=== PATIENT | male | born 1980 | race Caucasian/White ===

== ENCOUNTER → 2017-01-11 | Outpatient (REF) | payer BC | LOC: M SMT 10:15 | PROVIDERS: ATTEND Urology | DX: Z30.2 Encounter for sterilization (principal) ==

== ENCOUNTER → 2017-04-07 | Outpatient (REF) | payer BC ==
[2017-04-07 14:14] LABS: IMMMOTILE SPERM CENTRIFUGED ABSENT (ABSENT); IMMOTILE SPERM ABSENT (ABSENT); MOTILE SPERM ABSENT (ABSENT); MOTILE SPERM CENTRIFUGED ABSENT (ABSENT)
== END ==
LOC: M SMT 13:29
PROVIDERS: ATTEND Urology
DX: Z30.2 Encounter for sterilization (principal)

== ENCOUNTER → 2021-01-07 | Outpatient (CLI) | payer BC ==
[~2021-01-07] MED LIST: CLAR5TAB11 PO
== END ==
LOC: M LABSMTC 11:35
PROVIDERS: ATTEND Anesthesiology
DX: Z01.812 Encounter for preprocedural laboratory examination (principal); Z20.822 Contact with and (suspected) exposure to COVID-19

== ENCOUNTER 2021-01-12 08:45 | Day surgery (SDC) | payer BC ==
[~2021-01-12] VITALS: Ht 180.3 cm; Wt 90.7 kg
[~2021-01-12 08:45] MED LIST changes: +KETOROLAC 60MG 2ML VIAL As Ordered ONE; +LIDOCAINE 1% MDV 20ML VIAL SQ PRN; +LIDOCAINE 2% 100MG/5ML SDV (FOR ANES.) As Ordered ONE; +LR 1,000 ML IV ONE; +MIDAZOLAM INJ 2MG/2ML VIAL (J2250 PER 1MG) As Ordered ONE; +ONDANSETRON 4MG/2ML VIAL As Ordered ONE; +ROCURONIUM BROMIDE 50 MG/5 ML VIAL As Ordered ONE; +SUGAMMADEX SODIUM 500 MG/5 ML VIAL (BRIDION) As Ordered ONE; +dexameTHASONE 4 MG/ML 1ML VIAL (J1100 PER 1MG) As Ordered ONE; +fentaNYL 250 MCG/5 ML INJECTION (J3010) As Ordered ONE; +propofoL 200 MG/20 ML VIAL As Ordered ONE
--- OUTSIDE RECORDS SUMMARY | 2021-01-12 08:51 | CCD | Continuity of Care Document ---
Author Author Pramod Mccabe Organization Unknown Address [address] [facility] [address] [place] [address] Phone [phone] Care Team Providers Care Supervisor Steno Pool Name Role Phone Malinda Arciniega ANP AUTM [phone] [facility] Radiology AUTM [phone] Jack Aponte MD AUTM [phone] Problems Active Problems Provider Date Temporomandibular joint click Joan Hurtado D.O. Ons et: 04/19/2013 Gastroesophageal reflux disease Joan Hurtado D.O. O nset: 04/19/2013 Social History Type Date Description Comments Sex Unknown ETOH Use Occasionally consumes beer ETOH Use Rarely consumes wine Tobacco Use Start: Unknown Patient is a current smoker, smo kes some days about 2 packs a week Allergies, Adverse Reactions, Alerts Active Allergies Reaction Severity Comments Date No Known Drug Allergy 2010 Medications Active Medications SIG Qnty Indications Ordering Provide r Date Chantix Continuing Month Kendall 1mg T ablets twice a day (start one month after starter pack) 60tabs SOHAIL Mccabe 10/23/[address] 1 by mouth prn SOHAIL Mccabe 10/17/2018 Chantix Starting Month Kendall 0.5mg X 11 & 1 mg X 42 Tablets follow kendall directions 1pk SOHAIL Mccabe 08/09/2017 Claritin 10mg Tablets 1 po qd 30tabs Joan Hurtado D.O. 03/24/2011 Multi For Him Tablets 1 by mouth every day Unknown Immunizations Description No Information Available Vital Signs Date Vital Result Comment 12/30/2020 7:58am BP Systolic 136 mmHg BP Diastolic 70 mmHg Heart Rate 78 /min Height 71 inches 5'11" Weight 212.00 lb O2 % BldC Oximetry 98 % BMI (Body Mass Index) 29.6 kg/m2 07/14/2020 3:01pm Heart Rate 90 /min Height 71 inches 5'11" Weight 207.00 lb O2 % BldC Oximetry 98 % RM Air BMI (Body Mass Index) 28.9 kg/m2 Results Test Acquired Date Facility Test Result H/L Range Note Complete Blood Count 12/30/2020 [facility] Director Of Recreation Therapy: [place] Ehsan [place] [address] [phone] WBC 5.1 x10*3/UL 4.1 - 10.9 RBC 5.15 x10*6/UL 4.20 - 6.30 Hemoglobin 16.1 g/dL 12.0 - 18.0 Hematocrit 46.2 % 37.0 - 51.0 MCV 89.7 fL 80.0 - 97.0 MCH 31.3 pg 26.0 - 32.0 MCHC 34.9 g/dL 31.0 - 38.0 RDW 12.4 % 11.6 - 13.7 PLT 225 x10*3/UL 140 - 440 MPV 7.6 FL Low 7.8 - 11.0 Lymph % 27.3 % 10.0 - 58.5 Mid % 5.8 % 1.7 - 9.3 Neut % 66.9 % 37.0 - 92.0 Lymph # 1.4 x10*3/UL 0.6 - 4.1 Mid # 0.3 x10*3/UL 0.1 - 0.6 Neut # 3.4 x10*3/UL 2.0 - 7.8 Basic Metabolic Panel 12/30/2020 [facility] Director Of Recreation Therapy: Dr Ehsan [place] [address] [phone] Glucose 100 mg/dL High 74 - 99 1 BUN 16 mg/dL 7 - 18 Creatinine 0.9 mg/dL 0.6 - 1.3 Sodium 142 mEq/L 136 - 145 Potassium 4.3 mEq/L 3.5 - 5.1 Chloride 103 mEq/L 98 - 107 Carbon Dioxide 29 mEq/L 21 - 32 Calcium 9.1 mg/dL 8.5 - 10.1 GFR >= 60 mL/min >60 GFR >= 60 mL/min >60 2 Lipid Profile 12/30/2020 [facility] Director Of Recreation Therapy: Dr Ehsan Langford [place], [place] [id number] [phone] Cholesterol 190 mg/dL 131 - 200 Triglycerides 83 mg/dL 30 - 150 HDL Cholesterol 46 mg/dL 35 - 60 LDL (Calculated) 127 CALC 50 - 159 1 100-125 mg/dL PRE-DIABET ES/FASTING >126 mg/dL DIABETES/FASTING 2 CHRONIC KIDNEY DISEASE STAGI NG PER NKF STAGE I & II GFR >= 60 NORMAL TO MILDLY DECREASED STAGE III GFR 30-59 MODERATELY DECREASED STAGE IV GFR 15-29 SEVERELY DECREASED STAGE V GFR <15 VERY LITTLE GFR LEFT ESRD GFR <15 ON EARLY LEARNING TEACHER Procedures Description No Information Available Medical Devices Description No Information Available Encounters Type Date Location Provider Dx Diagnosis Office Visit 07/14/2020 3:00p [facility], SOHAIL I86.1 Scrotal varices N50.82 Scrotal pain N43.3 Hydrocele, unspecified Assessments Date Code Description Provider 07/14/2020 I86.1 Scrotal varices SOHAIL Mccabe 07/14/2020 N50.82 Scrotal pain SOHAIL Mccabe 07/14/2020 N43.3 Hydrocele, unspecified Malinda Sánchez, SOHAIL Plan of Treatment Future Appointment(s):* 01/05/2022 9:00 am - SOHAIL Mccabe at [facility] Functional Status Description No Information Available Mental Status Description No Information Available Referrals Refer to Reason for Referral Status Appt Date Jose Cano M.D. CONSULT FOR SCROTAL PAIN Patient Notified 07/24/2020 [facility] [address] , [facility] [place], [place] [id number] [phone]
--- OUTSIDE RECORDS SUMMARY | 2021-01-12 08:51 | CCD | Continuity of Care Document ---
Author Author Pramod Mccabe Organization Unknown Address [address] [facility] [address] [place] [address] Phone [phone] Care Team Providers Care Machine Clipper Name Role Phone Malinda Arciniega ANP AUTM [phone] [facility] Radiology AUTM [phone] Jack Aponte MD AUTM [phone] Problems Active Problems Provider Date Temporomandibular joint [...] H/L Range Note Complete Blood Count 12/30/2020 [facility] Medical Research Assistant: [place] [address] [phone] WBC 5.1 x10*3/UL 4.1 - 10.9 RBC [...] 2.0 - 7.8 Basic Metabolic Panel 12/30/2020 [facility] Medical Research Assistant: [place] [address] [phone] Glucose 100 mg/dL High 74 - 99 [...] 60 mL/min >60 2 Lipid Profile 12/30/2020 [facility] Medical Research Assistant: [place] [address] [phone] Cholesterol 190 mg/dL 131 - 200 Triglycerides [...] LITTLE GFR LEFT ESRD GFR <15 ON SEO PROFESSIONAL Procedures Description No Information Available Medical Devices Description No Information Available Encounters Type Date Location Provider Dx Diagnosis Office Visit 12/30/2020 8:00a [facility] Malinda Sánchez, [facility] Z00.00 Encntr for general adult medical exam w/ o abnormal findings K40.30 Unil inguinal hernia, w obst , w/o gangr, not spcf as recur E78.00 Pure hypercholesterolemia, u nspecified F17.210 Nicotine dependence, cigaret skye, uncomplicated Z71.6 Tobacco abuse counseling E66.3 Overweight Z68.29 Body mass index [BMI] 29.0-2 9.9, adult Z80.0 Family history of malignant neoplasm of digestive organs Z13.89 Encounter for screening for other disorder Office Visit 07/14/2020 3:00p [facility], RESIN FILTERER I86.1 Scrotal varices N50.82 Scrotal pain N43.3 Hydrocele, unspecified Assessments Date Code Description Provider 12/30/2020 Z00.00 Encounter for genera l adult medical examination without abnormal findings SOHAIL Mccabe 12/30/2020 K40.30 Unilateral inguinal hernia, with obstruction, without gangrene, not specified as recurrent SOHAIL Mccabe 12/30/2020 E78.00 Pure hypercholesterolemia, unspe cified SOHAIL Mccabe 12/30/2020 F17.210 Nicotine dependence, cigarettes, uncomplicated Malinda Sonali Be, [facility] 12/30/2020 Z71.6 Tobacco abuse counseling Malinda Ayala, [facility] 12/30/2020 E66.3 Overweight Malinda Ayala, [facility] 12/30/2020 Z68.29 Body mass index [BMI] 29.0-29.9, adult Malinda Sonali Be, [facility] 12/30/2020 Z80.0 Family history of malignant neop lasm of digestive organs Malinda Ayala [facility] 12/30/2020 Z13.89 Encounter for screening for othe r disorder Malinda Ayala [facility] 07/14/2020 I86.1 Scrotal varices Malinda Ayala [facility] 07/14/2020 N50.82 Scrotal pain Malinda Ayala [facility] 07/14/2020 N43.3 Hydrocele, unspecified Malinda Sánchez, [facility] Plan of Treatment Future Appointment(s):* 01/05/2022 9:00 am - SOHAIL Mccabe at [facility] 12/30/2020 - SOHAIL Mccabe* Z00.00 Encounter for general adult medical examination without abnormal findings* Comments:* Diet and exercise discussed. * K40.30 Unilateral inguinal hernia, with obstruction, without gangrene, not specified as recurrent* Comments:* CBC and BMP normal. Dr Aponte plans to surgically repair hernia this month. * E78.00 Pure hypercholesterolemia, unspecified* Comments:* lipids at goal without medication * F17.210 Nicotine dependence, cigarettes, uncomplicated* Comments:* Smoking cessation discussed. He is not ready to restart Chantix. * Z71.6 Tobacco abuse counseling* Comments:* smoking cessation discussed. * E66.3 Overweight* Comments:* Exercise and diet discussed. * Z68.29 Body mass index [BMI] 29.0-29.9, adult * Z80.0 Family history of malignant neoplasm of digestive organs * Z13.89 Encounter for screening for other disorder Functional Status Description No Information Available Mental Status Description No Information Available Referrals Refer to Reason for Referral Status Appt Date Jose Cano M.D. CONSULT FOR SCROTAL PAIN Patient Notified 07/24/2020 [facility] [address] , [place] [address] [phone]
--- OUTSIDE RECORDS SUMMARY | 2021-01-12 08:51 | CCD | Continuity of Care Document ---
Author Author Pramod Mccabe Organization Unknown Address [address] [facility] [address] [place] [address] Phone [phone] Care Team Providers Care Laser Beam Color Scanner Operator Name Role Phone Malinda Arciniega ANP AUTM [phone] [facility] Radiology AUTM [phone] Problems Active Problems Provider Date Temporomandibular joint [...] BMI (Body Mass Index) 28.9 kg/m2 Results Description No Information Available Procedures Description No Information Available Medical Devices Description No Information Available Encounters Type Date Location Provider Dx Diagnosis Office Visit 07/14/2020 3:00p [facility] Malinda Sánchez, [employer]ANT [employer] MANAGER I86.1 Scrotal varices N50.82 Scrotal pain N43.3 Hydrocele, unspecified Assessments Date Code Description Provider 07/14/2020 I86.1 Scrotal varices Malidna Ayala, SOHAIL 07/14/2020 N50.82 Scrotal pain SOHAIL Mccabe 07/14/2020 N43.3 Hydrocele, unspecified Malinda Sánchez, [employer] ARE[employer] MANAGER Plan of Treatment No Information Available Functional Status Description No Information Available Mental Status Description No Information Available Referrals Refer to Reason for Referral Status Appt Date Jose Cano M.D. CONSULT FOR SCROTAL PAIN Patient Notified 07/24/2020 [facility] [address] , [place] [address] [phone]
--- OUTSIDE RECORDS SUMMARY | 2021-01-12 08:52 | CCD ---
Author Author [facility] Address Unknown Phone Unavailable Care Team Providers Care Smearer Name Role Phone LePine, M Malinda COATER HAND Unavailable Unavailable LePine, M Malinda COATER HAND Unavailable Unavailable LePine, M Malinda COATER HAND Unavailable Unavailable LePine, M Malinda COATER HAND Unavailable Unavailable LePine, M Malinda COATER HAND Unavailable Unavailable LePine, M Malinda COATER HAND Unavailable Unavailable LePine, M Malinda COATER HAND Unavailable Unavailable LePine, M Malinda COATER HAND Unavailable Unavailable LePine, M Malinda COATER HAND Unavailable Unavailable LePine, M Malinda COATER HAND Unavailable Unavailable LePine, M Malinda COATER HAND Unavailable Unavailable LePine, M Malinda COATER HAND Unavailable Unavailable LePine, M Malinda COATER HAND Unavailable Unavailable LePine, M Malinda COATER HAND Unavailable Unavailable LePine, M Malinda COATER HAND Unavailable Unavailable LePine, M Malinda COATER HAND Unavailable Unavailable LePine, M Malinda COATER HAND Unavailable Unavailable LePine, M Malinda COATER HAND Unavailable Unavailable LePine, M Malinda COATER HAND Unavailable Unavailable LePine, M Malinda COATER HAND Unavailable Unavailable LePine, M Malinda COATER HAND Unavailable Unavailable LePine, M Malinda COATER HAND Unavailable Unavailable LePine, M Malinda COATER HAND Unavailable Unavailable LePine, M Malinda COATER HAND Unavailable Unavailable LePine, M Malinda COATER HAND Unavailable Unavailable LePine, M Malinda COATER HAND Unavailable Unavailable LePine, M Malinda COATER HAND Unavailable Unavailable LePine, M Malinda COATER HAND Unavailable Unavailable LePine, M Malinda COATER HAND Unavailable Unavailable LePine, M Malinda COATER HAND Unavailable Unavailable LePine, M Malinda COATER HAND Unavailable Unavailable LePine, M Malinda COATER HAND Unavailable Unavailable LePine, M Malinda COATER HAND Unavailable Unavailable LePine, M Malinda COATER HAND Unavailable Unavailable LePine, M Malinda COATER HAND Unavailable Unavailable LePine, M Malinda COATER HAND Unavailable Unavailable LePine, M Malinda COATER HAND Unavailable Unavailable LePine, M Malinda COATER HAND Unavailable Unavailable LePine, M Malinda COATER HAND Unavailable Unavailable LePine, M Malinda COATER HAND Unavailable Unavailable LePine, M Malinda COATER HAND Unavailable Unavailable LePine, M Malinda COATER HAND Unavailable Unavailable LePine, M Malinda COATER HAND Unavailable Unavailable LePine, M Malinda COATER HAND Unavailable Unavailable LePine, M Malinda COATER HAND Unavailable Unavailable LePine, M Malinda COATER HAND Unavailable Unavailable LePine, M Malinda COATER HAND Unavailable Unavailable LePine, M Malinda COATER HAND Unavailable Unavailable LePine, M Malinda COATER HAND Unavailable Unavailable LePine, M Malinda COATER HAND Unavailable Unavailable LePine, M Malinda COATER HAND Unavailable Unavailable LePine, M Malinda COATER HAND Unavailable Unavailable LePine, M Malinda COATER HAND Unavailable Unavailable LePine, M Malinda COATER HAND Unavailable Unavailable LePine, M Malinda COATER HAND Unavailable Unavailable LePine, M Malinda COATER HAND Unavailable Unavailable Re-disclosure Warning The records that you are about to access may contain information from federally-assisted alcohol or drug abuse programs. If such information is present, then the following federally mandated warning applies: This information has been disclosed to you from records protected by federal confidentiality rules (42 CFR part 2). The federal rules prohibit you from making any further disclosure of this information unless further disclosure is expressly permitted by the written consent of the person to whom it pertains or as otherwise permitted by 42 CFR part 2. A general authorization for the release of medical or other information is NOT sufficient for this purpose. The Federal rules restrict any use of the information to criminally investigate or prosecute any alcohol or drug abuse patient.The records that you are about to access may contain highly sensitive health information, the redisclosure of which is protected by Article 27-F of the [facility] Public Health law. If you continue you may have access to information: Regarding HIV / AIDS; Provided by facilities licensed or operated by the [facility] Office of Mental Health; or Provided by the [facility] Office for People With Developmental Disabilities. If such information is present, then the following [facility] mandated warning applies: This information has been disclosed to you from confidential records which are protected by state law. State law prohibits you from making any further disclosure of this information without the specific written consent of the person to whom it pertains, or as otherwise permitted by law. Any unauthorized further disclosure in violation of state law may result in a fine or retirement sentence or both. A general authorization for the release of medical or other information is NOT sufficient authorization for further disc losure. Family History Family Member Name Family Member Gender Family Member Status Date o f Status Description Data Source(s) Unknown Unknown Problem [facility] ([facility] Unknown Unknown Encounters Encounter Providers Location Date Indications Data Source(s ) Outpatient Attender: Malinda Rodriguez 12/30 07:00:00 AM EST [facility] ([facility] ) Unknown [address] [facility] [address] 09/02/2020 12:00:00 AM EDT eCW1 ([facility]) Outpatient Attender: Malinda Sorianojackson 07/14 03:00:00 PM EDT [facility] ([facility] ) Medications Medication Brand Name Start Date Product Form Dose Route Admi nistrative Instructions Pharmacy Instructions Status Indications Reaction Description Data Source(s) 1 mg 12/02/2019 12:00:00 AM EST tablet 56 TAKE PER PACKAGE INSTRUCTIONS TWO TIMES A DAY (START ONE MONTH AFTER STARTING PACK) TAKE PER PACKAGE INSTRUCTIONS TWO TIMES A DAY (START ONE MONTH AFTER STARTING PACK) SOLD: 12/03/2019 [facility] 1 mg 12/02/2019 12:00:00 AM EST tablet 56 TAKE PER PACKAGE INSTRUCTIONS TWO TIMES A DAY (START ONE MONTH AFTER STARTING PACK) TAKE PER PACKAGE INSTRUCTIONS TWO TIMES A DAY (START ONE MONTH AFTER STARTING PACK) SOLD: 10/12/2020 [facility] Insurance Providers Payer name Policy type / Coverage type Policy ID Covered green party ID Covered green party's relationship to augustin Policy Augustin Plan Information [employer] FEDERAL EMPLOYEE PROGRAM [id number] SP [id number] [employer] FED[employer]AL EMPLOYEE PROGRAM [id number] SP [id number] [place] B [id number] S [id number] [facility] BC/BS Commercial [id number] Self [id number] BC BS [place] FED[place] B UNAVAILABLE S UNAVAILABLE EXCELLUS BC FEDERAL [id number] SP [id number] [facility] BC/BS Commercial Self SELF PAY O S [place] DEPART OF LABOR O [id number] S [id number] [place] Dept [employer] Labor/[employer] Workers Compensation Self BCBS Federal Plan Commercial Self BC BS [place] FED[place]AL [id number] SP [id number] Results ID Date Data Source [id number] 01/07/2021 11:00:00 AM EST [facility] Name Value Range Interpretation Code Description Data Gail rce(s) Supporting Document(s) SARS coronavirus [address] [facility] This lab was ordered by [facility] and reported by [facility]. ID Date Data Source [id number] 12/30/2020 08:52:00 AM EST [facility] ([facility]) Name Value Range Interpretation Code Description Data Gail rce(s) Supporting Document(s) Triglyceride [Mass/volume] in Serum or Plasma 83 mg/dL 30-150 [facility] ([facility]) Cholesterol [Mass/volume] in Serum or Plasma 190 mg/dL 131-200 [facility] ([facility]) Cholesterol in HDL [Mass/volume] in Serum or Plasma 46 mg/dL 35-60 [facility] ([facility]) Cholesterol in LDL [Mass/volume] in Serum or Plasma by calcu lation 127 CALC 50-159 [facility] ([facility]) ID Date Data Source [id number] 12/30/2020 08:52:00 AM EST [facility] ([facility]) Name Value Range Interpretation Code Description Data Gail rce(s) Supporting Document(s) Urea nitrogen [Mass/volume] in Serum or Plasma 16 mg/dL 7-18 [facility] ([facility]) Glucose [Mass/volume] in Serum or Plasma 100 mg/dL 74-99 [facility] ([facility]) 100-125 mg/dL PRE-DIABETES/FASTING >126 mg/dL DIABETES/FASTING Creatinine 0.9 mg/dL 0.6-1.3 [facility]) Potassium [Moles/volume] in Serum or Plasma 4.3 meq/L 3.5-5.1 [facility] ([facility]) Sodium [Moles/volume] in Serum or Plasma 142 meq/L 136-145 [facility] ([facility]) Carbon dioxide, total [Moles/volume] in Serum or Plasma 29 meq/L 21 -32 [facility] ([facility]) Chloride [Moles/volume] in Serum or Plasma 103 meq/L 98-107 [facility] ([facility]) Glomerular filtration rate/1.73 sq M pre dicted among non-blacks [Volume Rate/Area] in Serum or Plasma by Creatinine-based formula (MDRD) Laboratory test result [facility] Glomerular filtration rate/1.73 sq M pre dicted among blacks [Volume Rate/Area] in Serum or Plasma by Creatinine-based formula (MDRD) Laboratory test result [facility] <content>CHRONIC KIDNEY DISEASE STAGING PER NKF</content>
<content></content>
<content>STAGE I & II GFR >= 60 NORMAL TO MILDLY DECREASED</content>
<content>STAGE III GFR 30-59 MODERATELY DECREASED</content>
<content>STAGE IV GFR 15-29 SEVERELY DECREASED</content>
<content>STAGE V GFR <15 VERY LITTLE GFR LEFT</content>
<content>ESRD GFR <15 ON GLOBAL REGULATORY LEAD</content>
<content></content> Calcium [Mass/volume] in Serum or Plasma 9.1 mg/dL 8.5-10.[address] [facility] ID Date Data Source [id number] 12/30/2020 08:52:00 AM EST [facility] Name Value Range Interpretation Code Description Data Gail rce(s) Supporting Document(s) Leukocytes [#/volume] in Blood by Automated count 5.1 x10*3/UL 4.1-[address] [facility] Erythrocytes [#/volume] in Blood by Automated count 5.15 x10*6/UL 4.2 0-6.[address] [facility] Hemoglobin [Mass/volume] in Blood 16.1 g/dL 12.0-18.[address] [facility] ([facility]) Hematocrit [Volume Fraction] of Blood by Automated count 46.2 % 3 7.0-51.[address] [facility] ([facility]) MCV 89.7 fL 80.0-97.[address] [facility] MCH 31.3 pg 26.0-32.0 [facility] Erythrocyte distribution width [Ratio] by Automated count 12.4 % 11.6-13.[address] [facility] ([facility]) MCHC 34.9 g/dL 31.0-38.0 [facility]) Platelets [#/volume] in Blood by Automated count 225 x10*3/UL 140-440 [facility] ([facility]) MPV 7.6 FL 7.8-11.0 [facility]) Lymph % 27.3 % 10.0-58.5 [facility]) Neut % 66.9 % 37.0-92.0 [facility]) Mid % 5.8 % 1.7-9.3 [facility]) Mid # 0.3 x10*3/UL 0.1-0.6 [facility] ([facility]) Lymph # 1.4 x10*3/UL 0.6-4.1 [facility] ([facility]) Neut # 3.4 x10*3/UL 2.0-7.8 [facility] ([facility]) ID Date Data Source [id number] 08/17/2020 12:00:00 AM EDT [facility] Yola Weinstein Np Patient Name: ROBERTO LAWS [id number] Date of : 1980[address] Date of Exam: 08/17/2020MARGARITA [place]en [id number]#: Fax: [phone] EXAM: US PELVIC, LIMITED (BLADDER, RE-EVALUATION)CLINICAL INFORMATION: Assess right inguinal canal. Pain.There are no prior pelvic ultrasounds for comparison.Seen in the right inguinal region, note is made of a 2.5 cm sized suspecteddefect in the anterior abdominal wall. Through this, a loop of bowel wasseen protruding.IMPRESSION:Right inguinal hernia suggested with findings as described above. Thisshould be correlated clinically. Consider further evaluation with CT ifclinically relevant.Accredited by the [employer] in General Ultrasound.JEANNIE Mtz/Juliana you for referring ROBERTO LAWS to our office. Electronically Signed - KINJAL FULTON DO 08/17/20 10:05 Name Value Range Interpretation Code Description Data Gail rce(s) Supporting Document(s) ID Date Data Source [id number] 07/20/2020 12:00:[address] [facility] Malinda Lepine Anp Patient Name: ROBERTO LAWS [id number] [facility] Date of : 1980[place] [address] Date of Exam: 07/20/2020#: Fax: [phone] EXAM: US SCROTUM & CONTENTSCLINICAL INFORMATION: Scrotal pain.The right testis measures 3.0 x 2.0 x 4.1 cm.The left testis measures 3.9 x 2.1 x 2.9 cm.The testes are normal size.There are no testicular masses or cysts.The right epididymal head measures 14 x 12 x 13 mm.The left epididymal head measures 8.8 x 8.9 x 11 mm.There are no epididymal head masses or cysts.With color Doppler assessment, there is vascular flow in both testes.There are moderate bilateral hydroceles. The right hydrocele is slightlylarger than the left.IMPRESSION:Moderate bilateral hydroceles. The right hydrocele is slightly larger thanthe left.Otherwise, negative scrotal ultrasound.Accredited by the [employer] in General Ultrasound.Ken Bran, BRYANAN/Juliana you for referring ROBERTO LAWS to our office. Electronically Signed - KEN BRAN MD 07/21/20 9:56 Name Value Range Interpretation Code Description Data Gail rce(s) Supporting Document(s) Procedure Vital Signs ID Date Data Source UNK Name Value Range Interpretation Code Description Data Source(s) Body mass index (BMI) [Ratio] 29.6 kg/m2 29.6 k g/m2 [facility] ([facility]) Oxygen saturation in Arterial blood by Pulse oximetry 98 % 98 % [facility] ([facility]) Body weight 212.00 [lb_av] 212.00 [lb_av] [facility] Body height 71 [in_i] 71 [in_i] [facility] ([facility]) 5'11" Heart rate 78 /min 78 /min [facility] ([facility]) Diastolic blood pressure 70 mm[Hg] 70 mm[Hg] [facility] ([facility]) Systolic blood pressure 136 mm[Hg] 136 mm[Hg] [facility] ([facility]) Body weight 100.246 kg 100.[address] [facility] ([facility]) [place] body weight 172 [lb_av] 172 [lb_av] [facility] Body mass index (BMI) [Ratio] 30.8 kg/m2 30.8 k g/m2 [facility] ([facility]) Body weight 221.00 [lb_av] 221.00 [lb_av] [facility] Body height 71 [in_i] 71 [in_i] [facility] ([facility]) 5'11" Diastolic blood pressure 80 mm[Hg] 80 mm[Hg] [facility] ([facility]) Systolic blood pressure 150 mm[Hg] 150 mm[Hg] [facility] Body mass index (BMI) [Ratio] 28.9 kg/m2 28.9 k g/m2 [facility] ([facility]) Oxygen saturation in Arterial blood by Pulse oximetry 98 % 98 % [facility] ([facility]) Air Body weight 207.00 [lb_av] 207.00 [lb_av] [facility] ([facility] Body height 71 [in_i] 71 [in_i] [facility] ([facility]) " Heart rate 90 /min 90 /min [facility] ([facility]) Body weight 95.256 kg 95.[address] [facility] ([facility]) [place] body weight 172 [lb_av] 172 [lb_av] [facility] Body mass index (BMI) [Ratio] 29.3 kg/m2 29.3 k g/m2 [facility] ([facility]) Body weight 210.00 [lb_av] 210.00 [lb_av] [facility] ([facility]) Body height 71 [in_i] 71 [in_i] [facility] ([facility]) 511"
[2021-01-12] MEDS ORDERED: BUPIVACAINE HCL 0.25% 30ML VIAL As Ordered ONE (10:11)
[2021-01-12] MEDS ORDERED: ROCURONIUM BROMIDE 50 MG/5 ML VIAL As Ordered ONE (11:03)
[2021-01-12] MEDS ORDERED: LR 1,000 ML IV SCH (13:00)
[2021-01-12] MEDS ORDERED: ONDANSETRON 4MG/2ML VIAL IV PRN (13:00)
[2021-01-12] MEDS ORDERED: ACETAMINOPHEN 1000MG 100ML IV BTL (OFIRMEV) (J0131 PER 10MG) As Ordered ONE (13:19)
[2021-01-12] MEDS: oxyCODONE 5MG TAB PO PRN ×2 (13:20→13:50)
[2021-01-12] MEDS: fentaNYL 100 MCG/2 ML INJECTION (J3010) IV PRN ×4 (13:21→13:41)
[2021-01-12] MEDS ORDERED: ACETAMINOPHEN 500 MG TAB PO PRN (14:00)
[2021-01-12] MEDS ORDERED: NORCO, ANEXSIA 5/325MG TABLET (HYDROcodone/ACETAMINOPHEN) PO PRN (14:00)
[2021-01-12] MEDS ORDERED: IBUPROFEN 600MG TAB PO PRN (14:00)
[2021-01-12 16:10] VITALS: BP 123/74
--- NOTE | 2021-01-12 20:05 | RO ---
OPERATIVE NOTE DATE OF OPERATION: 01/12/2021 PREOPERATIVE DIAGNOSIS: Right inguinal hernia. POSTOPERATIVE DIAGNOSIS: Indirect right inguinal hernia. PROCEDURE: Robotic-assisted laparoscopic right inguinal herniorrhaphy with ProGrip mesh. The mesh utilized was ProGrip, reference code [id number] and lot number [id number]. SURGEON: Jack Aponte MD HEDIS REGISTERED NURSE RN: None. ANESTHESIA: General. INDICATIONS FOR THE PROCEDURE: The patient is a 40-year-old man with a small right inguinal hernia for repair. DESCRIPTION OF PROCEDURE: The patient was brought to the operating room and placed on the table in a supine position. The patient was placed under general endotracheal anesthesia. The patient's abdomen, groins and genitalia were prepped and draped in a sterile fashion. 1/4% Marcaine was infiltrated at each of the trocar sites as needed. The short transverse supraumbilical incision was made and a Veress needle was inserted. After a positive hanging drop test, the abdomen was inflated with carbon dioxide gas. An 8 mm robotic port was placed over the scope and advanced through the abdominal wall without difficulty. Initial examination showed a small hernia defect on the right with no evidence of hernia on the left. Two additional ports were placed on right and left sides of the abdomen at the same level as the initial port. The patient was then placed in a 15 degree Trendelenburg position. The patient cart with a da Nereida XI robot was brought into position and the endoscope arm was docked to the supraumbilical port. Targeting took place in the right side of the pelvis and the additional arms were then docked. A fenestrated bipolar and a cauterizing scissors were then inserted. I then moved to the control console to proceed with the operation. Initially, a transverse peritoneal incision was made beginning at the medial umbilical ligament and extending laterally. This was begun approximately 5-6 cm above the location of the hernia defect. The peritoneal flap was developed, working from medial to lateral. Working with a combination of blunt and sharp and cautery dissection, the flap was initially fully developed medially down to expose the symphysis pubis and the area of the Edi's ligament. There was no evidence of femoral hernia. The lateral aspect of the flap was then developed. The hernia sac was then freed and reduced into the abdomen. There was a large herniation of some preperitoneal fat along with the hernia sac and this was all reduced back into the abdomen. The preperitoneal space was then further developed by freeing the hernia sac off of the underlying cord structures. The vas deferens was clearly identified and preserved. A very small opening was created through the peritoneum as the hernia sac was freed more superiorly. Once the space was completely prepared, the ProGrip mesh was inserted and placed into the preperitoneal space. Medially, this extended down posterior to the Edi's ligament and symphysis pubis. This was centered over the fascial defect of the hernia and had an excellent coverage on all sides. The adherent side of the mesh was gently pressed into the soft tissues. No sutures were placed. I then began the closure of the peritoneal flap. This was begun laterally with a running suture of an absorbable 2-0 V-Loc. Once this had been carried approximately 1/2 to 2[address] to the medial end, a 3-0 Vicryl was used to close the very small peritoneal defect. At this point, the patient was returned to a flat position in stages and the intra-abdominal pressure was reduced to 8 mmHg. As I approached the very end of the closure, the patient was actually placed into a reverse Trendelenburg position to bring the bowel up against the peritoneum and press this in over the mesh. The final two sutures were placed to complete the closure of the peritoneum. The two remaining needles were removed. The patient tolerated the procedure well. The robotic instruments were removed and the robot undocked. I returned to the patient's side. The abdomen was deflated and the trocars were all removed. The skin incisions were all closed with buried sutures of 4-0 Vicryl and Steri-Strips. Light dressings were applied. The patient tolerated the procedure well without apparent complication. He was awakened in the operating room, extubated and moved to the recovery room in stable condition. AMAURI
== END 2021-01-12 16:15 | disposition home or self-care (01) ==
LOC: M SDC 08:45
PROVIDERS: ATTEND Surgery
DX: K40.90 Unilateral inguinal hernia, without obstruction or gangrene, not specified as recurrent (principal); F17.210 Nicotine dependence, cigarettes, uncomplicated
CPT/HCPCS: 49650; C1781; J0131; J1100; J1885; J2250; J2405; J3010; S2900

== ENCOUNTER 2024-04-22 08:29 | Day surgery (SDC) | payer BC ==
[~2024-04-22] VITALS: Ht 180.3 cm; Wt 91.2 kg
[~2024-04-22 08:29] MED LIST changes: -KETOROLAC 60MG 2ML VIAL As Ordered ONE; -LIDOCAINE 1% MDV 20ML VIAL SQ PRN; -LIDOCAINE 2% 100MG/5ML SDV (FOR ANES.) As Ordered ONE; -LR 1,000 ML IV ONE; -MIDAZOLAM INJ 2MG/2ML VIAL (J2250 PER 1MG) As Ordered ONE; +NS 1,000 ML IV ONE; -ONDANSETRON 4MG/2ML VIAL As Ordered ONE; -ROCURONIUM BROMIDE 50 MG/5 ML VIAL As Ordered ONE; -SUGAMMADEX SODIUM 500 MG/5 ML VIAL (BRIDION) As Ordered ONE; -dexameTHASONE 4 MG/ML 1ML VIAL (J1100 PER 1MG) As Ordered ONE; -fentaNYL 250 MCG/5 ML INJECTION (J3010) As Ordered ONE; -propofoL 200 MG/20 ML VIAL As Ordered ONE
[2024-04-22] MEDS ORDERED: propofoL 500 MG/50 ML VIAL As Ordered ONE (09:47)
[2024-04-22 10:09] VITALS: TEMP 97.1
[2024-04-22 10:25] VITALS: BP 149/74; O2SAT 97
== END 2024-04-22 10:35 | disposition home or self-care (01) ==
LOC: M OPP 08:29
PROVIDERS: ATTEND Internal Medicine Gastroenterology
DX: R19.4 Change in bowel habit (principal); Z80.0 Family history of malignant neoplasm of digestive organs; K64.8 Other hemorrhoids; K57.30 Diverticulosis of large intestine without perforation or abscess without bleeding; Z79.899 Other long term (current) drug therapy; Z87.891 Personal history of nicotine dependence